=== PATIENT | female | born 1995 | race Caucasian/White ===

== ENCOUNTER → 2017-10-23 07:56 | Outpatient (CLI) | payer OTHER, SELFPAY ==
[2017-10-23 11:00] LABS: Alanine Aminotransferase 18 U/L (12-78); Albumin Level 3.9 gm/dL (3.4-5.0); Albumin/Globulin Ratio 0.9 (1.1-1.8); Alkaline Phosphatase 83 U/L (46-116); Anion Gap 14.3 mEq/L (5-15); Aspartate Amino Transferase 17 U/L (15-37); Bilirubin,Total 0.5 mg/dL (0.2-1.0); Blood Urea Nitrogen 13 mg/dL (7-18); Carbon Dioxide 27 mmol/L (21.0-32.0); Chloride 104 mmol/L (98-107); Creatinine,Serum 0.73 mg/dL (0.55-1.02); Estimated Glomerular Filt Rate 98 ml/min (>60); Free T4 (Free Thyroxine) 1.19 ng/dl (0.76-1.46); GFR (African American) 119 ML/MIN (>60); Globulin 4.3 gm/dl (1.3-3.2); Glucose 86 mg/dL (74-106); Potassium 4.3 mmoL/L (3.5-5.1); Sodium 141 mmol/L (136-145); T4 (Thyroxine) 9.2 ug/dl (4.7-13.3); Thyroid Stimulating Hormone 3.34 uIU/ml (0.358-3.740); Total Protein,Serum 8.2 gm/dL (6.4-8.2)
[2017-10-26 17:10] LABS: Insulin Level Total 17.5 uIU/mL (2.6-24.9); Triiodothyronine (T3) Free 2.9 pg/mL (2.0-4.4)
== END ==
PROVIDERS: PCP Internal Medicine Endocrinology, Diabetes & Metabolism; Visit Provider Internal Medicine Endocrinology, Diabetes & Metabolism
DX: E34.9 Endocrine disorder, unspecified (principal); E03.8 Other specified hypothyroidism
CPT/HCPCS: 36415; 80053; 82533; 83525; 84436; 84439; 84443; 84481

== ENCOUNTER → 2017-11-06 08:33 | Outpatient (CLI) | payer OTHER, SELFPAY ==
[2017-11-08 08:50] LABS: Adrenocorticotropic Hormone 27.4 pg/mL (7.2-63.3)
== END ==
PROVIDERS: Visit Provider Internal Medicine Endocrinology, Diabetes & Metabolism
DX: E34.9 Endocrine disorder, unspecified (principal); E03.8 Other specified hypothyroidism; R94.6 Abnormal results of thyroid function studies
CPT/HCPCS: 36415; 82024

== ENCOUNTER → 2018-04-02 16:13 | Outpatient (CLI) | payer OTHER, SELFPAY ==
[2018-04-02 19:06] LABS: Thyroid Stimulating Hormone 2.89 uIU/ml (0.358-3.740)
[2018-04-05 20:01] LABS: Triiodothyronine (T3) Free 2.5 pg/mL (2.0-4.4)
== END ==
PROVIDERS: Visit Provider Internal Medicine Endocrinology, Diabetes & Metabolism
DX: E03.8 Other specified hypothyroidism (principal); E04.2 Nontoxic multinodular goiter; E06.3 Autoimmune thyroiditis
CPT/HCPCS: 36415; 84439; 84443; 84481